=== PATIENT | male | born 1950 | race Caucasian/White ===

== ENCOUNTER 2018-02-12 07:21 | Outpatient (CLI) | payer MEDICARE, BC, SELFPAY ==
[2018-02-12 13:23] LABS: ALT 29 U/L (12-78); AST 20 U/L (15-37); Albumin 3.8 g/dL (3.4-5.0); Alkaline Phosphatase 61 U/L (46-116); BUN 15 mg/dL (7-18); Bilirubin, Total 0.4 mg/dL (0.2-1.0); CREATININE 1.12 mg/dL (0.70-1.30); Calcium 8.5 mg/dL (8.5-10.1); Chloride 103 mmol/L (98-107); Glucose 84 mg/dL (70-100); Potassium 4.6 mmol/L (3.5-5.1); Sodium 138 mmol/L (136-145); Total Protein 6.9 g/dL (6.4-8.2)
[2018-02-12 13:39] LABS: COMMENT (LAB VIEW ONLY) 148.26 mg/dL; Microalb ug/mg Crea 4.4 ug/mg Cr
[2018-02-12 13:44] LABS: Hemoglobin A1C 6.4 % (4.5-6.2)
== END 2018-02-12 07:41 ==
PROVIDERS: PCP Family Medicine; Visit Provider Family Medicine
DX: E11.9 Type 2 diabetes mellitus without complications (principal); I10 Essential (primary) hypertension
CPT/HCPCS: 36415; 80053; 82043; 82570; 83036

== ENCOUNTER 2018-05-21 19:52 | Emergency (ER) | payer MEDICARE, BC, SELFPAY ==
[2018-05-21 20:04] VITALS: BP 135/81; PULSE 70; RESP 16; TEMP 36.4; O2SAT 95
[2018-05-21 20:57] LABS: Bilirubin Negative (Negative); Blood Large (Negative); Clarity Sl Cloudy; Glucose Negative (Negative); Ketones Trace mg/dL (Negative); Leukocyte Esterase Negative (Negative); Nitrite Negative (Negative); Specific Gravity 1.025 (1.005-1.025); Urobilinogen 0.2 EU/dL (Up TO 0.2); pH 5.5 (5-8)
[2018-05-21 21:12] LABS: Bacteria Negative HPF (Negative); C & S Indicated? No; Casts Negative LPF (Negative); Crystals Negative HPF (Negative); Epithelial Cells Negative HPF (Negative); Mucus Negative (Negative); Other Cells Negative (Negative); RBC >50 (0-2); WBC Negative HPF (0-5)
[2018-05-21 21:14] LABS: Abs Immature Grans 0.03 k/cumm (0.0-0.09); Absolute Basophil Count 0.03 k/cumm (0.0-0.2); Absolute Eosinophil Count 0.12 k/cumm (0.0-0.7); Absolute Lymphocyte Count 1.26 k/cumm (1.2-3.4); Absolute Monocyte Count 0.57 k/cumm (0.11-0.7); Absolute Neutrophil Count 5.56 k/cumm (1.2-6.7); Basophils % 0.4; Eosinophils % 1.6; HCT 42.7 % (40.0-50.0); HGB 14.3 g/dL (13.5-17.5); Immature Grans % 0.4; Lymphocytes % 16.6; Mean Corp. HGB Concentration 33.5 g/dL (32.0-36.0); Mean Corpuscular Hemoglobin 32.4 pg (27.0-33.0); Mean Corpuscular Volume 96.8 fL (80-95); Mean Platelet Volume 9.5 fL (8.0-11.0); Monocytes % 7.5; Neutrophils % 73.5; Platelet Count 187 x1000/uL (130-400); RBC 4.41 m/cumm (4.50-6.00); RBC Distribution Width 15.3 % (11.8-14.1); White Blood Cell Count 7.57 k/cumm (4.4-10.8)
--- NOTE | 2018-05-21 21:20 | DI.CT_ITS ---
SYMPTOM/DIAGNOSIS: FLANK PAIN, LLQ PAIN NONCONTRAST CT ABDOMEN AND PELVIS: The lung bases are clear. Coronary artery calcifications and mild cardiomegaly is noted. There is mild bilateral gynecomastia. The liver, gallbladder, spleen, pancreas and adrenals appear normal. There is mild right hydronephrosis secondary to a 2 mm stone at the right ureterovesical junction. No left sided calculi are seen. There is a small left renal cyst. The appendix appears normal. There are a few scattered diverticula with no evidence of diverticulitis. The prostate contains a few calcifications. There is a saccular aneurysm of the mid abdominal aorta measuring 3.8 x 4.1 cm. Degenerative changes are seen in the spine. IMPRESSION: Mild right hydronephrosis secondary to 2 mm stone at the ureterovesical junction. 4.1 cm saccular abdominal aortic aneurysm.
[2018-05-21 21:24] LABS: ALT 33 U/L (12-78); AST 20 U/L (15-37); Alkaline Phosphatase 67 U/L (46-116); Anion Gap 10.5 mmol/L (3-11); BUN 16 mg/dL (7-18); Bilirubin, Total 0.5 mg/dL (0.2-1.0); CO2 26.5 mmol/L (21.0-32.0); CREATININE 1.12 mg/dL (0.70-1.30); Calcium 8.9 mg/dL (8.5-10.1); Chloride 100 mmol/L (98-107); Glucose 152 mg/dL (70-100); Potassium 4.5 mmol/L (3.5-5.1); Sodium 137 mmol/L (136-145)
--- NOTE | 2018-05-21 21:47 | DI.VRAD_ITS ---
EXAM: CT Abdomen and Pelvis Without Contrast EXAM DATE/TIME: 05/21/2018 8:48 PM CLINICAL HISTORY: 68 years old, male; Pain; Abdominal pain; Flank; Left; Patient HX: Patient states flank pain, llq pain. Dark urine since last night. No HX of kidney stones. TECHNIQUE: Axial computed tomography images of the abdomen and pelvis without contrast. All CT scans at this facility use at least one of these dose optimization techniques: automated exposure control; mA and/or kV adjustment per patient size (includes targeted exams where dose is matched to clinical indication); or iterative reconstruction. Coronal and sagittal reformatted images were created and reviewed. COMPARISON: No relevant prior studies available. FINDINGS: Lower thorax: Coronary arterial calcifications. ABDOMEN: Liver: No mass. Gallbladder and bile ducts: No calcified stones. No ductal dilation. Pancreas: No ductal dilation. Spleen: No splenomegaly. Adrenals: No mass. Kidneys and ureters: There is mild right-sided hydronephrosis. Exophytic left renal cyst measures 15 mm. No calculi elsewhere in the course of the urinary tract. Stomach and bowel: No obstruction. No mucosal thickening. Appendix: No evidence of appendicitis. PELVIS: Bladder: 2 mm calculus at the right ureterovesical junction projecting in the luminal aspect of the bladder. Reproductive: The prostate contains calcifications, mildly enlarged at 3.7 x 3.7 cm. Pelvic phleboliths bilaterally. ABDOMEN and PELVIS: Intraperitoneal space: No free air. No significant fluid collection. Bones/joints: Degenerative changes within thoracic and lumbar spine. Soft tissues: The abdomen is obese. Vasculature: Infrarenal abdominal aortic aneurysm, 3.8 x 4.1 cm. Atherosclerotic abdominal aorta and branches. Lymph nodes: No enlarged lymph nodes. IMPRESSION: 1. Mild right-sided hydroureteronephrosis, caused by 2 mm calculus at the right ureterovesical junction. No calculi elsewhere in the course of the urinary tract. No findings to account for the left flank pain. 2. Infrarenal abdominal aortic aneurysm, 3.8 x 4.1 cm. No rupture or leak. Dictated and Authenticated by: Elliott Harrington MD. Ordering:WILL Armenta MD
--- NOTE | 2018-05-21 22:39 | W.ED.GENAD ---
Discharge Plan Disposition Patient Disposition: HOME Condition: Stable Discharge Details Chief Complaint: Urinary Clinical Impression: Aneurysm of infrarenal abdominal aorta, Right ureteral stone Primary Care Provider: Viry Alex ED Provider: Geovany Price Home Meds and New Rx's Prescriptions: Continued amlodipine 5 mg tablet 5 mg PO DAILY RF: 0 glipizide 5 mg tablet 5 mg PO DAILY RF: 0 lisinopril-hydrochlorothiazide 10-12.5 mg tablet 1 tab PO DAILY RF: 0 lovastatin 40 mg tablet 40 mg PO DAILY RF: 0 metformin 1,000 mg tablet 1,000 - 1,500 mg PO BID RF: 0 sildenafil 50 mg tablet 25 - 100 mg PO DAILY PRN (Reason: sexual activity) RF: 0 fluticasone 50 mcg/actuation spray,suspension 1 spray JARAD DAILY Qty: 9.9 RF: 2 blood-glucose meter 1 EACH misc 1 ea Miscellaneous BID Qty: 1 RF: 0 LIFESCAN 1 EACH EACH 1 ea Miscellaneous BID Qty: 1 RF: 0 blood sugar diagnostic [Blood Glucose Test] 1 EACH strip 1 ea Miscellaneous QD to BID Qty: 200 RF: 4 atenolol 50 mg tablet 50 mg PO DAILY Qty: 90 RF: 4 Discharge Instructions Instructions: Kidney Stones (ED), Abdominal Aortic Aneurysm (GEN), How to Strain Your Urine (ED) Additional Instructions: He may continue to use [id number] acetaminophen as needed for pain control and return to the emergency department for any fever chills, significant worsening of your symptoms, or any further concerns that you have. Stay well-hydrated. As far as your abdominal aneurysm you should continue to take your blood pressure medication and immediately return to the emergency department for any severe abdominal pain Referrals: Viry Alex MD [Primary Care Provider] - 1 week (Please follow-up with your primary care provider in the next week for reassessment and assistance arranging vascular surgery follow-up for your abdominal aneurysm.) Patrick Wan MD [ [facility] STAFF PHYSICIAN] - (Please strain your urine and follow-up with urology in 1-2 weeks for reassessment.) Discharge Data Discharge Date/Time-TO BE ENTERED AT DEPARTURE: 05/21/18 23:38 Medical Decision Making Patient presenting to the emergency department for chief complaint of right flank pain. Patient states yesterday evening he started having some dark urine that persisted throughout today. Then a couple hours prior to arrival he started having some right lower abdominal pain and flank pain. Patient denies any nausea vomiting, fever chills, change in bowel function. Patient does state some mild urinary incontinence. Physical exam is positive for some mild right CVA tenderness otherwise unremarkable examination. Concern for renal calculi is high on differential list plan to perform radiological imaging and check labs. Patient states that pain is very comfortable after taking 1000 mg of acetaminophen approximately 2 hours prior to arrival. Review of labs shows nondiagnostic and CT shows a 2 mm stone in patient's right UVJ. Of notation is a 3.8 x 4.1 cm infrarenal abdominal aneurysm. Did discuss findings of aneurysm with patient and he states no previous knowledge or history of abdominal aneurysm. Patient is now pain-free with stable vital signs, non-tachycardic/hypertensive. Did speak with vascular surgeon Dr. [facility] at [facility] in regards to this secondary finding of abdominal aneurysm. He recommended patient follow-up with primary care for reassessment in the next week and assistance arranging outpatient follow-up with vascular surgery. Given 2 mm stone patient now states he is pain-free I feel that patient is safe to continue to use [id number] pain medication and to follow-up with Dr. Wan on outpatient basis. After discussion of diagnosis and plan of care patient has no further needs, questions, or concerns and states clear understanding to return to the emergency department for any worsening symptoms. HPI General Mode of arrival: ambulatory. Date/Time Provider Initiated Documentation: 05/21/18 20:06. Limitations to Documentation: no limitations. Information obtained by: patient and RN notes reviewed. History of Present Illness 68 year old M presents to the emergency department with the chief complaint of right flank pain, abd pain, described as mild, with intensity rated at 4. Quality is described as aching, and is localized to the right (flank). Patient abdomen. Patient started experiencing this hour(s) (24) and it has been constant. No relieving factors improve symptom(s), No exacerbating factors reported . Patient notes no other symptoms.. Patient did receive the following treatments prior to arrival, other (1000mg acetaminophen) Related Data Home Medications Medication Instructions Recorded Confirmed blood-glucose meter #1 ea 11/06/13 blood sugar diagnostic [Blood #200 strip 04/08/17 Glucose Test] amlodipine 5 mg tablet 5 mg PO DAILY 02/10/18 05/21/18 glipizide 5 mg tablet 5 mg PO DAILY 02/10/18 05/21/18 lisinopril 10 1 tab PO DAILY 02/10/18 05/21/18 mg-hydrochlorothiazide 12.5 mg tablet lovastatin 40 mg tablet 40 mg PO DAILY 02/10/18 05/21/18 metformin 1,000 mg tablet 1,000 - 1,500 mg PO BID tab 02/10/18 05/21/18 sildenafil 50 mg tablet 25 - 100 mg PO DAILY PRN tab 02/10/18 05/21/18 fluticasone 50 mcg/actuation nasal 1 spray JARAD DAILY #9.9 gm 02/11/18 05/21/18 spray,suspension atenolol 50 mg tablet 50 mg PO DAILY #90 tab 03/31/18 05/21/18 Previous Rx's Medication Instructions Recorded blood sugar diagnostic [Blood #200 strip 04/08/17 Glucose Test] fluticasone 50 mcg/actuation nasal 1 spray JARAD DAILY #9.9 gm 02/11/18 spray,suspension atenolol 50 mg tablet 50 mg PO DAILY #90 tab 03/31/18 Allergies Allergy/AdvReac Type Severity Reaction Status Date / Time shellfish derived Allergy Mild Unverified 05/21/18 20:11 General Stated Complaint: Urinary BRIGIDO: 4 Review of Systems Constitutional Denies chills and Denies fever(s) Cardiovascular Denies chest pain and Denies dyspnea Respiratory Denies dyspnea Gastrointestinal Reports as per HPI, Reports abdominal pain, Denies melena, Denies change in bowel habits, Denies constipation, Denies diarrhea, Denies nausea and Denies vomiting Genitourinary Reports as per HPI, Reports hematuria, Denies difficulty urinating, Reports flank pain, Denies penile discharge, Denies testicular pain, Denies urinary hesitancy, Reports urinary incontinence and Denies urinary urgency Integumentary/Breasts Denies rash PFSH Allergic rhinitis Diabetes Hyperlipidemia Hypertension Family History Mother Essential hypertension Heart disease Hyperlipidemia Father Diabetes Sister Diabetes Essential hypertension Brother Diabetes Essential hypertension Grandfather TB (tuberculosis) Grandfather Essential hypertension Stroke Grandmother Essential hypertension Seizures Grandmother Essential hypertension Son No problems noted. Son No problems noted. Daughter No problems noted. Social History household members: other details: 4 current occupational status: retired pets and animals: Yes pets and animals: dog(s) Smoking/Tobacco Use Status: Former Tobacco Use alcohol intake: current alcohol intake frequency: a few times a month substance use type: does not use special davis needs: No Exam Const General: cooperative Orientation: alert, awake and oriented x3 Resp Effort & Inspection: normal respiratory effort and able to speak in complete sentences Auscultation: clear to auscultation bilaterally Cardio Rate: regular rate Rhythm: regular rhythm Heart Sounds: S1 normal and S2 normal GI Palpation: soft, no hepatosplenomegaly, not firm, no guarding, no masses, no pulsatile masses, not rigid, no splenomegaly and nontender Auscultation: normal bowel sounds Back/Spine/Pelvis Back: CVA tenderness (right) Neuro General: alert, awake, oriented x3, gait normal and moves all extremities Course Vital Signs Temperature 36.4 C 05/21/18 20:04 Pulse 70 05/21/18 20:04 Respiratory Rate 16 05/21/18 20:04 Blood Pressure 135/81 05/21/18 20:04 Pulse Oximetry 95 05/21/18 20:04 Temperature 36.4 C 05/21/18 20:04 Temperature Source Temporal Artery Scan 05/21/18 20:04 Pulse 70 05/21/18 20:04 Respiratory Rate 16 05/21/18 20:04 Respiratory Effort 05/21/18 20:04 Blood Pressure 135/81 05/21/18 20:04 Pulse Oximetry 95 05/21/18 20:04 Oxygen Delivery Method Room Air 05/21/18 20:04 Oxygen Flow Rate 0 05/21/18 20:04 Pain Level 7 05/21/18 20:09 Lab/Test Results Lab/Test Results: Laboratory Tests Range/Units 05/21/18 05/21/18 05/21/18 20:00 20:55 20:55 WBC (4.4-10.8) k/cumm 7.57 RBC (4.50-6.00) m/cumm 4.41 L Hgb (13.5-17.5) g/dL 14.3 Hct (40.0-50.0) % 42.7 MCV (80-95) fL 96.8 H MCH (27.0-33.0) pg 32.4 MCHC (32.0-36.0) g/dL 33.5 RDW (11.8-14.1) % 15.3 H Plt Count (130-400) x1000/uL 187 MPV (8.0-11.0) fL 9.5 Immature Gran % 0.4 Neutrophils % 73.5 Lymphocytes % 16.6 Monocytes % 7.5 Eosinophils % 1.6 Basophils % 0.4 Absolute Neutrophils (1.2-6.7) k/cumm 5.56 Absolute Lymphocytes (1.2-3.4) k/cumm 1.26 Absolute Monocytes (0.11-0.7) k/cumm 0.57 Absolute Eosinophils (0.0-0.7) k/cumm 0.12 Absolute Basophils (0.0-0.2) k/cumm 0.03 Sodium (136-145) mmol/L 137 Potassium (3.5-5.1) mmol/L 4.5 Chloride (98-107) mmol/L 100 Carbon Dioxide (21.0-32.0) mmol/L 26.5 Anion Gap (3-11) mmol/L 10.5 BUN (7-18) mg/dL 16 Creatinine (0.70-1.30) mg/dL 1.12 Estimated GFR/1.73 m2 (mL/min/1.73m2) >= 60.00 Glucose (70-100) mg/dL 152 H Calcium (8.5-10.1) mg/dL 8.9 Total Bilirubin (0.2-1.0) mg/dL 0.5 AST (15-37) U/L 20 ALT (12-78) U/L 33 Alkaline Phosphatase (46-116) U/L 67 Total Protein (6.4-8.2) g/dL 8.0 Albumin (3.4-5.0) g/dL 4.0 Urine Color (Yellow) Brown Urine Clarity Sl cloudy Urine pH (5-8) 5.5 Ur Specific [place] (1.005-1.025) 1.025 Urine Protein (Negative) mg/dL 100 H Urine Ketones (Negative) mg/dL Trace H Urine Blood (Negative) Large H Urine Nitrite (Negative) Negative Urine Bilirubin (Negative) Negative Urine Urobilinogen (Up TO 0.2) EU/dL 0.2 Ur Leukocyte Esterase (Negative) Negative Urine RBC (0-2) >50 H Urine WBC (0-5) HPF Negative Ur Epithelial Cells (Negative) HPF Negative Urine Crystals (Negative) HPF Negative Urine Bacteria (Negative) HPF Negative Urine Casts (Negative) LPF Negative Urine Mucus (Negative) Negative Urine Other (Negative) Negative Ur Culture Indicated? No Urine Glucose (Negative) mg/dL Negative
--- NOTE | 2018-05-21 22:45 | ED.GENADUL_ITS ---
Discharge Plan Disposition Patient Disposition: HOME Condition: Stable Discharge Details Chief Complaint: Urinary Clinical Impression: Aneurysm of infrarenal abdominal aorta, Right ureteral stone Primary Care Provider: Viry Alex ED Provider: Geovany Price Home Meds and New Rx's Prescriptions: Continued amlodipine 5 mg tablet 5 mg PO DAILY RF: 0 glipizide 5 mg tablet 5 mg PO DAILY RF: 0 lisinopril-hydrochlorothiazide 10-12.5 mg tablet 1 tab PO DAILY RF: 0 lovastatin 40 mg tablet 40 mg PO DAILY RF: 0 metformin 1,000 mg tablet 1,000 - 1,500 mg PO BID RF: 0 sildenafil 50 mg tablet 25 - 100 mg PO DAILY PRN (Reason: sexual activity) RF: 0 fluticasone 50 mcg/actuation spray,suspension 1 spray JARAD DAILY Qty: 9.9 RF: 2 blood-glucose meter 1 EACH misc 1 ea Miscellaneous BID Qty: 1 RF: 0 LIFESCAN 1 EACH EACH 1 ea Miscellaneous BID Qty: 1 RF: 0 blood sugar diagnostic [Blood Glucose Test] 1 EACH strip 1 ea Miscellaneous QD to BID Qty: 200 RF: 4 atenolol 50 mg tablet 50 mg PO DAILY Qty: 90 RF: 4 Discharge Instructions Instructions: Kidney Stones (ED), Abdominal Aortic Aneurysm (GEN), How to Strain Your Urine (ED) Additional Instructions: He may continue to use [id number] acetaminophen as needed for pain control and return to the emergency department for any fever chills, significant worsening of your symptoms, or any further concerns that you have. Stay well- hydrated. As far as your abdominal aneurysm you should continue to take your blood pressure medication and immediately return to the emergency department for any severe abdominal pain Referrals: Viry Alex MD [Primary Care Provider] - 1 week (Please follow-up with your primary care provider in the next week for reassessment and assistance arranging vascular surgery follow-up for your abdominal aneurysm.) Patrick Wan MD [ [facility] STAFF PHYSICIAN] - (Please strain your urine and follow-up with urology in 1-2 weeks for reassessment.) Discharge Data Discharge Date/Time-TO BE ENTERED AT DEPARTURE: 05/21/18 23:38 Medical Decision Making Patient presenting to the emergency department for chief complaint of right flank pain. Patient states yesterday evening he started having some dark urine that persisted throughout today. Then a couple hours prior to arrival he started having some right lower abdominal pain and flank pain. Patient denies any nausea vomiting, fever chills, change in bowel function. Patient does state some mild urinary incontinence. Physical exam is positive for some mild right CVA tenderness otherwise unremarkable examination. Concern for renal calculi is high on differential list plan to perform radiological imaging and check labs. Patient states that pain is very comfortable after taking 1000 mg of acetaminophen approximately 2 hours prior to arrival. Review of labs shows nondiagnostic and CT shows a 2 mm stone in patient's right UVJ. Of notation is a 3.8 x 4.1 cm infrarenal abdominal aneurysm. Did discuss findings of aneurysm with patient and he states no previous knowledge or history of abdominal aneurysm. Patient is now pain-free with stable vital signs, non- tachycardic/hypertensive. Did speak with vascular surgeon Dr. Love at [facility] in regards to this secondary finding of abdominal aneurysm. He recommended patient follow-up with primary care for reassessment in the next week and assistance arranging outpatient follow-up with vascular surgery. Given 2 mm stone patient now states he is pain-free I feel that patient is safe to continue to use [id number] pain medication and to follow-up with Dr. Wan on outpatient basis. After discussion of diagnosis and plan of care patient has no further needs, questions, or concerns and states clear understanding to return to the emergency department for any worsening symptoms. HPI General Mode of arrival: ambulatory . Date/Time Provider Initiated Documentation: 05/21/18 20:06 . Limitations to Documentation: no limitations . Information obtained by: patient and RN notes reviewed . History of Present Illness 68 year old M presents to the emergency department with the chief complaint of right flank pain, abd pain, described as mild, with intensity rated at 4. Quality is described as aching, and is localized to the right (flank). Patient abdomen. Patient started experiencing this hour(s) (24) and it has been constant. No relieving factors improve symptom(s), No exacerbating factors reported . Patient notes no other symptoms.. Patient did receive the following treatments prior to arrival, other (1000mg acetaminophen) Related Data Home Medications Medication Instructions Recorded Confirmed blood-glucose meter #1 ea 11/06/13 blood sugar diagnostic [Blood #200 strip 04/08/17 Glucose Test] amlodipine 5 mg tablet 5 mg PO DAILY 02/10/18 05/21/18 glipizide 5 mg tablet 5 mg PO DAILY 02/10/18 05/21/18 lisinopril 10 1 tab PO DAILY 02/10/18 05/21/18 mg-hydrochlorothiazide 12.5 mg tablet lovastatin 40 mg tablet 40 mg PO DAILY 02/10/18 05/21/18 metformin 1,000 mg tablet 1,000 - 1,500 mg PO BID tab 02/10/18 05/21/18 sildenafil 50 mg tablet 25 - 100 mg PO DAILY PRN tab 02/10/18 05/21/18 fluticasone 50 mcg/actuation nasal 1 spray JARAD DAILY #9.9 gm 02/11/18 05/21/18 spray,suspension atenolol 50 mg tablet 50 mg PO DAILY #90 tab 03/31/18 05/21/18 Previous Rx's Medication Instructions Recorded blood sugar diagnostic [Blood #200 strip 04/08/17 Glucose Test] fluticasone 50 mcg/actuation nasal 1 spray JARAD DAILY #9.9 gm 02/11/18 spray,suspension atenolol 50 mg tablet 50 mg PO DAILY #90 tab 03/31/18 Allergies Allergy/AdvReac Type Severity Reaction Status Date / Time shellfish derived Allergy Mild Unverified 05/21/18 20:11 General Stated Complaint: Urinary BRIGIDO: 4 Review of Systems Constitutional Denies chills and Denies fever(s) Cardiovascular Denies chest pain and Denies dyspnea Respiratory Denies dyspnea Gastrointestinal Reports as per HPI, Reports abdominal pain, Denies melena, Denies change in bowel habits, Denies constipation, Denies diarrhea, Denies nausea and Denies vomiting Genitourinary Reports as per HPI, Reports hematuria, Denies difficulty urinating, Reports flank pain, Denies penile discharge, Denies testicular pain, Denies urinary hesitancy, Reports urinary incontinence and Denies urinary urgency Integumentary/Breasts Denies rash PFSH Allergic rhinitis Diabetes Hyperlipidemia Hypertension Family History Mother Essential hypertension Heart disease Hyperlipidemia Father Diabetes Sister Diabetes Essential hypertension Brother Diabetes Essential hypertension Grandfather TB (tuberculosis) Grandfather Essential hypertension Stroke Grandmother Essential hypertension Seizures Grandmother Essential hypertension Son No problems noted. Son No problems noted. Daughter No problems noted. Social History household members: other details: 4 current occupational status: retired pets and animals: Yes pets and animals: dog(s) Smoking/Tobacco Use Status: Former Tobacco Use alcohol intake: current alcohol intake frequency: a few times a month substance use type: does not use special davis needs: No Exam Const General: cooperative Orientation: alert, awake and oriented x3 Resp Effort & Inspection: normal respiratory effort and able to speak in complete sentences Auscultation: clear to auscultation bilaterally Cardio Rate: regular rate Rhythm: regular rhythm Heart Sounds: S1 normal and S2 normal GI Palpation: soft, no hepatosplenomegaly, not firm, no guarding, no masses, no pulsatile masses, not rigid, no splenomegaly and nontender Auscultation: normal bowel sounds Back/Spine/Pelvis Back: CVA tenderness (right) Neuro General: alert, awake, oriented x3, gait normal and moves all extremities Course Vital Signs Temperature 36.4 C 05/21/18 20:04 Pulse 70 05/21/18 20:04 Respiratory Rate 16 05/21/18 20:04 Blood Pressure 135/81 05/21/18 20:04 Pulse Oximetry 95 05/21/18 20:04 Temperature 36.4 C 05/21/18 20:04 Temperature Source Temporal Artery Scan 05/21/18 20:04 Pulse 70 05/21/18 20:04 Respiratory Rate 16 05/21/18 20:04 Respiratory Effort 05/21/18 20:04 Blood Pressure 135/81 05/21/18 20:04 Pulse Oximetry 95 05/21/18 20:04 Oxygen Delivery Method Room Air 05/21/18 20:04 Oxygen Flow Rate 0 05/21/18 20:04 Pain Level 7 05/21/18 20:09 Lab/Test Results Lab/Test Results: Laboratory Tests Range/Units 05/21/18 05/21/18 05/21/18 20:00 20:55 20:55 WBC (4.4-10.8) k/cumm 7.57 RBC (4.50-6.00) m/cumm 4.41 L Hgb (13.5-17.5) g/dL 14.3 Hct (40.0-50.0) % 42.7 MCV (80-95) fL 96.8 H MCH (27.0-33.0) pg 32.4 MCHC (32.0-36.0) g/dL 33.5 RDW (11.8-14.1) % 15.3 H Plt Count (130-400) x1000/uL 187 MPV (8.0-11.0) fL 9.5 Immature Gran % 0.4 Neutrophils % 73.5 Lymphocytes % 16.6 Monocytes % 7.5 Eosinophils % 1.6 Basophils % 0.4 Absolute Neutrophils (1.2-6.7) k/cumm 5.56 Absolute Lymphocytes (1.2-3.4) k/cumm 1.26 Absolute Monocytes (0.11-0.7) k/cumm 0.57 Absolute Eosinophils (0.0-0.7) k/cumm 0.12 Absolute Basophils (0.0-0.2) k/cumm 0.03 Sodium (136-145) mmol/L 137 Potassium (3.5-5.1) mmol/L 4.5 Chloride (98-107) mmol/L 100 Carbon Dioxide (21.0-32.0) mmol/L 26.5 Anion Gap (3-11) mmol/L 10.5 BUN (7-18) mg/dL 16 Creatinine (0.70-1.30) mg/dL 1.12 Estimated GFR/1.73 m2 (mL/min/1.73m2) >= 60.00 Glucose (70-100) mg/dL 152 H Calcium (8.5-10.1) mg/dL 8.9 Total Bilirubin (0.2-1.0) mg/dL 0.5 AST (15-37) U/L 20 ALT (12-78) U/L 33 Alkaline Phosphatase (46-116) U/L 67 Total Protein (6.4-8.2) g/dL 8.0 Albumin (3.4-5.0) g/dL 4.0 Urine Color (Yellow) Brown Urine Clarity Sl cloudy Urine pH (5-8) 5.5 Ur Specific [place] (1.005-1.025) 1.025 Urine Protein (Negative) mg/dL 100 H Urine Ketones (Negative) mg/dL Trace H Urine Blood (Negative) Large H Urine Nitrite (Negative) Negative Urine Bilirubin (Negative) Negative Urine Urobilinogen (Up TO 0.2) EU/dL 0.2 Ur Leukocyte Esterase (Negative) Negative Urine RBC (0-2) >50 H Urine WBC (0-5) HPF Negative Ur Epithelial Cells (Negative) HPF Negative Urine Crystals (Negative) HPF Negative Urine Bacteria (Negative) HPF Negative Urine Casts (Negative) LPF Negative Urine Mucus (Negative) Negative Urine Other (Negative) Negative Ur Culture Indicated? No Urine Glucose (Negative) mg/dL Negative
[2018-05-21 23:38] VITALS: BP 124/77; PULSE 63; RESP 16; O2SAT 97
== END 2018-05-21 23:38 | disposition home or self-care (01) ==
PROVIDERS: Emergency Provider Nurse Practitioner Family; PCP Family Medicine
DX: I71.4 Abdominal aortic aneurysm, without rupture (principal); N20.1 Calculus of ureter; I10 Essential (primary) hypertension
CPT/HCPCS: 36415; 80053; 96360; 99284; 74176; 81003; 81015; 85025

== ENCOUNTER 2018-08-26 02:38 | Outpatient (CLI) | payer MEDICARE, BC, SELFPAY ==
[2018-08-26 11:14] LABS: Anion Gap 9.5 mmol/L (3-11); BUN 22 mg/dL (7-18); CO2 28.5 mmol/L (21.0-32.0); CREATININE 1.09 mg/dL (0.70-1.30); Calcium 9.2 mg/dL (8.5-10.1); Chloride 101 mmol/L (98-107); Cholesterol 124 mg/dL (50-200); Glucose 80 mg/dL (70-100); HDL Cholesterol 30 mg/dL (40-60); LDL CHOLESTEROL 74 mg/dL (<100); Potassium 4.5 mmol/L (3.5-5.1); Sodium 139 mmol/L (136-145); Triglyceride 119 mg/dL (30-150)
[2018-08-26 11:31] LABS: Hemoglobin A1C 6.2 % (4.5-6.2)
== END 2018-08-26 02:58 ==
PROVIDERS: PCP Family Medicine; Visit Provider Family Medicine
DX: E78.5 Hyperlipidemia, unspecified (principal); E11.9 Type 2 diabetes mellitus without complications
CPT/HCPCS: 36415; 80048; 80061; 83721; 83036

== ENCOUNTER 2018-12-23 13:52 | Outpatient (CLI) | payer MEDICARE, BC, SELFPAY ==
--- NOTE | 2018-12-23 09:34 | DI.RAD_ITS ---
SYMPTOM/DIAGNOSIS: KNEE AND HIP PAIN RIGHT KNEE: Narrowing of the lateral tibiofemoral joint compartment is demonstrated. There is mild periarticular hypertrophic spurring. Note is made of narrowing of the lateral patellofemoral joint with mild lateral subluxation of the patella. 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 AP PELVIS: The bony structures are normally mineralized. There are minimal degenerative changes involving both hips as judged from this single frontal projection.
== END 2018-12-23 14:12 ==
PROVIDERS: PCP Family Medicine; Referring Provider Family Medicine; Visit Provider Orthopaedic Surgery
DX: M25.561 Pain in right knee (principal); M17.11 Unilateral primary osteoarthritis, right knee; M25.461 Effusion, right knee; M25.551 Pain in right hip; M17.12 Unilateral primary osteoarthritis, left knee; M25.562 Pain in left knee
CPT/HCPCS: 99201; 99213; 72170; 73560

== ENCOUNTER → 2019-01-20 09:01 | Outpatient (BNVA) | payer MEDICARE, BC, SELFPAY | PROVIDERS: PCP Family Medicine; Referring Provider Family Medicine; Visit Provider Orthopaedic Surgery | DX: M17.12 Unilateral primary osteoarthritis, left knee | CPT/HCPCS: 99213 ==

== ENCOUNTER 2019-03-09 01:41 | Outpatient (CLI) | payer MEDICARE, BC, SELFPAY ==
[2019-03-09 10:48] LABS: ALT 29 U/L (16-63); AST 17 U/L (15-37); Albumin 3.9 g/dL (3.4-5.0); Alkaline Phosphatase 51 U/L (46-116); Anion Gap 7.9 mmol/L (3-11); BUN 22 mg/dL (7-18); Bilirubin, Total 0.6 mg/dL (0.2-1.0); CO2 30.1 mmol/L (21.0-32.0); CREATININE 1.25 mg/dL (0.70-1.30); Calcium 8.9 mg/dL (8.5-10.1); Calculated LDL 66 mg/dL; Chloride 101 mmol/L (98-107); Cholesterol 121 mg/dL (50-200); Estimated GFR 57.61 (mL/min/1.73m2); Glucose 112 mg/dL (70-100); HDL Cholesterol 34 mg/dL (40-60); Potassium 4.8 mmol/L (3.5-5.1); Sodium 139 mmol/L (136-145); Total Protein 6.8 g/dL (6.4-8.2); Triglyceride 105 mg/dL (30-150)
[2019-03-09 10:51] LABS: Hemoglobin A1C 6.4 % (4.5-6.2)
[2019-03-09 11:10] LABS: COMMENT (LAB VIEW ONLY) 128.61 mg/dL; Microalb ug/mg Crea 7.7 ug/mg Cr
== END 2019-03-09 02:01 ==
PROVIDERS: PCP Family Medicine; Visit Provider Family Medicine
DX: E11.9 Type 2 diabetes mellitus without complications (principal)
CPT/HCPCS: 36415; 80053; 80061; 82043; 82570; 83036

== ENCOUNTER 2019-05-18 11:13 | Outpatient (CLI) | payer MEDICARE, BC, SELFPAY ==
--- NOTE | 2019-05-18 11:49 | DI.RAD_ITS ---
EXAM: XR SHOULDER LT COMPLETE 2+V INDICATION: pain. COMPARISON: No exams were available for comparison TECHNIQUE: 2D digital imaging was performed. FINDINGS: There is spurring at the undersurface of the acromion. There is mild spurring at the glenoid. The humeral head appears normally positioned. IMPRESSION: Mild degenerative changes.
== END 2019-05-18 11:33 ==
PROVIDERS: PCP Family Medicine; Referring Provider Family Medicine; Visit Provider Orthopaedic Surgery
DX: M25.512 Pain in left shoulder (principal); M19.012 Primary osteoarthritis, left shoulder; W19.XXXA Unspecified fall, initial encounter
CPT/HCPCS: 99201; 99213; 73030

== ENCOUNTER → 2019-07-21 09:05 | Outpatient (BNVA) | payer MEDICARE, BC, SELFPAY | PROVIDERS: PCP Family Medicine; Referring Provider Family Medicine; Visit Provider Orthopaedic Surgery | DX: M25.512 Pain in left shoulder (principal); S46.012D Strain of muscle(s) and tendon(s) of the rotator cuff of left shoulder, subsequent encounter; X58.XXXD Exposure to other specified factors, subsequent encounter | CPT/HCPCS: 99213 ==

== ENCOUNTER 2019-12-16 01:44 | Outpatient (CLI) | payer MEDICARE, BC, SELFPAY ==
[2019-12-16 12:32] LABS: ALT 23 U/L (16-63); AST 14 U/L (15-37); Alkaline Phosphatase 59 U/L (46-116); Anion Gap 10.4 mmol/L (3-11); BUN 27 mg/dL (7-18); Bilirubin, Total 0.4 mg/dL (0.2-1.0); CO2 25.6 mmol/L (21.0-32.0); CREATININE 1.32 mg/dL (0.70-1.30); Calcium 8.7 mg/dL (8.5-10.1); Chloride 104 mmol/L (98-107); Estimated GFR 53.94 (mL/min/1.73m2); Glucose 109 mg/dL (74-106); Potassium 4.5 mmol/L (3.5-5.1); Sodium 140 mmol/L (136-145)
[2019-12-16 12:39] LABS: Hemoglobin A1C 6.3 % (3.8-5.6)
== END 2019-12-16 02:04 ==
PROVIDERS: PCP Family Medicine; Visit Provider Family Medicine
DX: E11.9 Type 2 diabetes mellitus without complications (principal)
CPT/HCPCS: 36415; 80053; 83036

== ENCOUNTER 2020-03-22 02:29 | Outpatient (CLI) | payer MEDICARE, BC, SELFPAY ==
[2020-03-22 12:42] LABS: CREATININE 1.32 mg/dL (0.70-1.30); Estimated GFR 53.94 (mL/min/1.73m2)
== END 2020-03-22 02:49 ==
PROVIDERS: PCP Family Medicine; Visit Provider Surgery
DX: I71.4 Abdominal aortic aneurysm, without rupture (principal)
CPT/HCPCS: 36415; 82565

== ENCOUNTER 2020-04-07 03:28 | Outpatient (CLI) | payer MEDICARE, BC, SELFPAY ==
[2020-04-07] MEDS: Omnipaque 350 MG/ML 100 ML BTL IJ (15:21)
[2020-04-07] MEDS: Normal Saline - Diluent 50 ML VIAL IV (15:21)
[2020-04-07] MEDS: Normal Saline Flush 10 ML SYR IVP (15:21)
--- NOTE | 2020-04-07 15:30 | DI.CT_ITS ---
EXAM: CT ABDOMEN PELVIS CTA CLINICAL HISTORY: F/U AAA, I71.4 TECHNIQUE: CT angiography of the abdomen and pelvis was performed with bolus infusion of 100 cc of O mnipaque 350. COMPARISON: CT CT ANGIOGRAM ABDOMEN AND PELVIS W CONTRAST (GENERIC) from 08/23/2019 FINDINGS: Images obtained through the lung bases are unremarkable. The liver appears normal with no evidence of a focal mass. Spleen is unremarkable in appearance.. Gallbladder and bile ducts are unremarkable. Pancreas is unremarkable in appearance. Adrenals appear normal bilaterally. Kidneys appear normal with no evidence of renal mass, hydronephro sis, or nephrolithiasis There is no evidence of abdominal or pelvic adenopathy. There is a saccular infrarenal abdominal aortic aneurysm measuring 42 x 38 millimeters in cross-secti onal diameter, unchanged from prior scan at [facility] August 22. No evidence of aneurysm leakage. No other significant vascular lesion identified. Appendix is normal. No evidence diverticulitis or bowel obstruction. No significant abdominal wall hernia seen. Impression: Stable saccular infrarenal 42 millimeter in diameter abdominal aortic aneurysm. RADIATION DOSE DELIVERED: 1,610.8mGy.cm Total DLP 1,610.8mGy.cm Total DLP DATA REPOSITORY: All CT scans at this facility are submitted to the National Radiology Data Registry (NRDR) Dose Index Registry (DIR) with the [employer] ([employer]). RADIATION OPTIMIZATION: All CT scans at this facility use at least one of these dose optimization te chniques: automated exposure control; mA and/or kV adjustment per patient size (includes targeted exa ms where dose is matched to clinical indication); or iterative reconstruction.
== END 2020-04-07 03:48 ==
PROVIDERS: PCP Family Medicine; Visit Provider Surgery
DX: I71.4 Abdominal aortic aneurysm, without rupture (principal)
CPT/HCPCS: 74174; J3490

== ENCOUNTER 2020-06-13 01:03 | Outpatient (CLI) | payer MEDICARE, BC, SELFPAY ==
--- NOTE | 2020-06-13 | DI.RAD_ITS ---
EXAM: XR CHEST 2V PA LATERAL CLINICAL HISTORY: PREOP FOR AAA REPAIR, AAA WITHOUT RUPTURE,I71.4 TECHNIQUE: 2D digital imaging was performed. COMPARISON: No exams were available for comparison FINDINGS: MEDIASTINUM: Normal. HEART: Normal. PULMONARY VASCULATURE: Normal. LUNGS: Clear. PLEURAL SPACE: No pleural effusion or pneumothorax. BONE:Within normal limits for the patient's age. OTHER FINDINGS:Normal. IMPRESSION: No acute pulmonary findings. DATA REPOSITORY: RADIATION DOSE DELIVERED:
--- NOTE | 2020-06-13 | DI.US_ITS ---
APPROVED REPORT EXAM: Comprehensive 2D, Doppler, and color-flow Echocardiogram Patient Location: Out-Patient Motion Picture Camera Lens Technician: Ling Connors RDCS (AE) Indications: AAA without rupture, pre op Other Information Study Quality: Adequate Conclusion Left Ventricle : The left ventricle is normal size. The left ventricular systolic function is low nor mal. The left ventricular ejection fraction is within the normal range. There is normal left ventricu lar wall thickness. There is normal LV segmental wall motion. The left ventricular diastolic function is normal. LVEF is 50%. Right Ventricle : The right ventricle is normal size. The right ventricular systolic function is norm al. The RVSP is 32.6mmHg. Atria : The left atrium size is normal. The right atrium size is normal. Mitral Valve : Mild mitral annular calcification. Mild mitral regurgitation. No evidence of mitral va lve stenosis. Great Vessels : The aortic root is normal in size. The ascending aorta is normal in size. Aortic arch is normal in caliber. IVC is normal in size and collapses >50% with inspiration. Please see remainder of study for further details. Wall motion Left Ventricle The left ventricle is normal size. The left ventricular systolic function is low normal. The left paola tricular ejection fraction is within the normal range. There is normal left ventricular wall thicknes s. There is normal LV segmental wall motion. The left ventricular diastolic function is normal. There is no ventricular septal defect visualized. LVEF is 50%. Right Ventricle The right ventricle is normal size. The right ventricular systolic function is normal. The RVSP is 32 .6mmHg. Atria The left atrium size is normal. The right atrium size is normal. The interatrial septum is intact wit h no evidence for an atrial septal defect. Aortic Valve The aortic valve is normal in structure. Aortic valve is trileaflet. There is no aortic valvular sten osis. No aortic regurgitation is present. Mitral Valve Mild mitral annular calcification. No evidence of mitral valve stenosis. Mild mitral regurgitation. Tricuspid Valve The tricuspid valve is normal in structure. There is no tricuspid valve stenosis. Mild tricuspid regu rgitation. Pulmonic Valve The pulmonary valve is normal in structure. There is no pulmonic valvular stenosis. Trace pulmonic re gurgitation. Great Vessels The aortic root is normal in size. The ascending aorta is normal in size. Aortic arch is normal in ca liber. IVC is normal in size and collapses >50% with inspiration. Pericardium There is no pericardial effusion. 2D Dimensions IVSD d PLAX 0.92 cm M: 0.6-1.2 LV Vol A2C d MOD 114.3 mL LVPW d PLAX 0.93 cm M: 0.6 - 1.2 LV Vol A4C d MOD 133.7 mL LVID d PLAX 5.28 cm M: 4.2 - 5.8 LA vol/ BSA A2C s A-L 35.0 mL/m2 LVDs 3.60 cm M: 2.5 - 4.0 LA vol/ BSA A4C s A-L 41.8 mL/m2 Ao Root d 3.04 cm M: 3.1 - 3.7 LA Vol/ BSA Biplane s A-L 40.5 mL/m2 RA Area A4C 16.85 cm2 LA Area A4C s MOD 26.21 cm2 RA Vol/ BSA A4C s A-L 23.0 mL/m2 LA Area A2C s MOD 22.66 cm2 Ao Asc Diam d 3.47 cm M: 2.6 - 3.4 LV EF A4C MOD 50.5 % LV EF Teichholz 59.3 % LV EF A2C MOD 50.9 % LVEF (Salas's) 48.66 % M: 52 - 72 LV EF Biplane MOD 48.7 % LV Volume 91.94 mL M: 62 - 150 SV 60.99 mL LV Volume Index 42.96 mL/m2 M: 34 - 74 SV Index 28.47 mL/m2 LV Vol Biplane MOD 125.4 mL FS 31.70 % M-Mode TAPSE 2.52 cm (M/F) >1.7 LV Diastology MV E' medial 0.076 (>0.07 m/s) E/A Ratio 1.1 LV E/e MED 10.95 (<14) MV E Vmax 0.83 (0.4-1.3 m/s) MV E' lateral 0.097 (>0.1 m/s) MV A Vmax 0.75 (0.4-1.3 m/s) LV E/e LAT 8.60 (<14) MV E/A Ratio 1.04 MV E/E' medial 10.97 MV E/E' lateral 8.61 Aortic Valve LVOT Area 3.42 cm2 AoV Area Vmax 2.59 cm2 LVOT Vmax 1.16 m/s AoV Area/ BSA (Vmax) 1.21 cm2/m2 LVOT Mean Magdaleno. 0.78 m/s CHAU Mean Magdaleno. 2.46 cm2 LVOT Peak Grad 5.3 mmHg CHAU Mean Magdaleno. Index 1.15 cm2/m2 LVOT Mean Grad 2.8 mmHg LVOT VTI 0.266 m LVOT Diam s 2.05 cm AoV Vmax 1.53 m/s Velocity Ratio 0.75 AoV Mean Magdaleno. 1.09 m/s AoV Peak Grad 9.3 mmHg LVOT SV 91.03 mL AoV Mean Grad 5.2 mmHg AoV VTI 0.337 m AoV Area VTI 2.70 cm2 AoV Area/ BSA (VTI) 1.26 cm/m2 Mitral Valve MV DT 166 (160-240 msec) MR PISA Radius 0.40 cm MV PHT 48 msec MR Aliasing Velocity 0.35 m/s MV Area PHT 4.58 cm2 MR PISA 1.01 cm2 MV VTI 0.389 m MV VTI Annulus 0.376 m MV Area VTI 2.26 (4.0-6.0 cm2) Pulmonary Valve PV Vmax 0.91 (0.5-1.5 m/s) RVOT Peak Gr. 1.47 mmHg PV Peak Grad 3.3 mmHg RVOT Mean Gr. 0.80 mmHg PV Mean Grad 1.9 mmHg RVOT VTI 0.159 m PV VTI 0.214 m RVOT Vmax 0.61 m/s Tricuspid Valve TR Peak Grad 29.6 mmHg TR Vmax 2.72 m/s RA Pressure 3.00 mmHg RVSP (TR) 32.6 mmHg
[2020-06-13 11:48] LABS: HCT 36.9 % (40.0-50.0); HGB 11.9 g/dL (13.5-17.5); MCH 30.4 pg (27.0-33.0); MCHC 32.2 % (32.0-36.0); MCV 94.4 fL (80-95); MPV 9.6 fL (8.0-11.0); Platelet Count 194 10^3/uL (130-400); RBC 3.91 10^6/uL (4.36-5.78); RDW 12.9 % (11.8-14.1); RDW-SD 44.7 fL; WBC 4.71 10^3/uL (4.4-10.8)
[2020-06-13 12:07] LABS: Hemoglobin A1C 6.8 % (<5.7)
[2020-06-13 12:13] LABS: Anion Gap 6.7 mmol/L (3-11); BUN 31 mg/dL (7-18); CO2 27.3 mmol/L (21.0-32.0); CREATININE 1.45 mg/dL (0.70-1.30); Calcium 8.5 mg/dL (8.5-10.1); Chloride 104 mmol/L (98-107); Estimated GFR 48.25 (mL/min/1.73m2); Glucose 122 mg/dL (74-106); Potassium 4.7 mmol/L (3.5-5.1); Sodium 138 mmol/L (136-145)
[2020-06-13 17:52] LABS: PSA, Diagnostic 0.2 ng/mL (0.0-4.5)
[2020-06-14 11:05] LABS: Prealbumin 24 mg/dL (20-40)
== END 2020-06-13 01:23 ==
PROVIDERS: PCP Family Medicine; Visit Provider Surgery
DX: I71.4 Abdominal aortic aneurysm, without rupture (principal); E11.9 Type 2 diabetes mellitus without complications; N40.0 Benign prostatic hyperplasia without lower urinary tract symptoms
CPT/HCPCS: 36415; 80048; 85027; 93306; 71046; 83036; 84134; 84153

== ENCOUNTER 2020-06-13 04:08 | Outpatient (CLI) | payer MEDICARE, BC, SELFPAY ==
--- NOTE | 2020-06-13 09:00 | RT.EKG_ITS ---
APPROVED REPORT Exam: Resting ECG Patient Location: O HR:64 bpm ECG Measurements Heart Rate 64 AXIS LA 196 P 16 QRSd 99 QRS -18 QT 406 T 9 QTc 421 Conclusion Sinus rhythm...normal P axis, V-rate 60- 99
== END 2020-06-13 04:28 ==
PROVIDERS: PCP Family Medicine; Visit Provider Surgery
DX: I71.4 Abdominal aortic aneurysm, without rupture (principal); Z01.810 Encounter for preprocedural cardiovascular examination; Z01.818 Encounter for other preprocedural examination; E11.9 Type 2 diabetes mellitus without complications; N40.0 Benign prostatic hyperplasia without lower urinary tract symptoms
CPT/HCPCS: 36415; 80048; 85027; 93306; 71046; 83036; 84134; 84153; 93005; 93010

== ENCOUNTER 2021-02-02 08:34 | Outpatient (CLI) | payer MEDICARE, BC, SELFPAY ==
--- NOTE | 2021-02-02 09:00 | RT.EKG_ITS ---
APPROVED REPORT Exam: Resting ECG Reason for Exam: AAA Patient Location: O HR:63 bpm ECG Measurements Heart Rate [address] 184 P 24 QRSd 101 QRS -20 QT 408 T 9 QTc 418 Conclusion Sinus rhythm...normal P axis, V-rate 60- 99 Normal Electrocardiogram
== END 2021-02-02 08:35 | disposition home or self-care (01) ==
LOC: RT 08:38
PROVIDERS: PCP Family Medicine; Visit Provider Surgery
DX: I71.4 Abdominal aortic aneurysm, without rupture (principal); Z01.818 Encounter for other preprocedural examination
CPT/HCPCS: 93005; 93010

== ENCOUNTER 2021-03-15 02:57 | Outpatient (CLI) | payer MEDICARE, BC, SELFPAY ==
[2021-03-15 12:58] LABS: ALT 25 U/L (16-63); AST 14 U/L (15-37); Albumin 3.8 g/dL (3.4-5.0); Alkaline Phosphatase 57 U/L (46-116); Anion Gap 9.4 mmol/L (3-11); BUN 26 mg/dL (7-18); Bilirubin, Total 0.3 mg/dL (0.2-1.0); CO2 24.6 mmol/L (21.0-32.0); CREATININE 1.4 mg/dL (0.70-1.30); Calcium 8.5 mg/dL (8.5-10.1); Calculated LDL 50 mg/dL (<100); Chloride 105 mmol/L (98-107); Cholesterol 103 mg/dL (<200); Estimated GFR 50.25 (mL/min/1.73m2); Glucose 134 mg/dL (74-106); HDL Cholesterol 30 mg/dL (40-60); Potassium 4.5 mmol/L (3.5-5.1); Sodium 139 mmol/L (136-145); Total Protein 6.5 g/dL (6.4-8.2); Triglyceride 119 mg/dL (<150)
[2021-03-15 13:48] LABS: COMMENT (LAB VIEW ONLY) 132.19 mg/dL
[2021-03-15 13:56] LABS: Hemoglobin A1C 7.2 % (<5.7)
== END 2021-03-15 02:58 | disposition home or self-care (01) ==
LOC: LOS 02:57
PROVIDERS: PCP Family Medicine; Visit Provider Family Medicine
DX: E11.9 Type 2 diabetes mellitus without complications (principal)
CPT/HCPCS: 36415; 80053; 80061; 82043; 82570; 83036

== ENCOUNTER 2021-06-15 03:57 | Outpatient (CLI) | payer MEDICARE, BC, SELFPAY ==
[2021-06-15 10:22] LABS: Anion Gap 8.8 mmol/L (3-11); BUN 23 mg/dL (7-18); CO2 28.2 mmol/L (21.0-32.0); CREATININE 1.3 mg/dL (0.70-1.30); Calcium 8.4 mg/dL (8.5-10.1); Chloride 105 mmol/L (98-107); Estimated GFR 54.57 (mL/min/1.73m2); Glucose 156 mg/dL (74-106); Potassium 4.2 mmol/L (3.5-5.1); Sodium 142 mmol/L (136-145)
== END 2021-06-15 03:58 | disposition home or self-care (01) ==
LOC: LBO 03:57
PROVIDERS: PCP Family Medicine; Visit Provider Family Medicine
DX: E11.9 Type 2 diabetes mellitus without complications (principal)
CPT/HCPCS: 36415; 80048; 83036

== ENCOUNTER 2021-11-01 03:17 | Outpatient (CLI) | payer MEDICARE, BC, SELFPAY ==
[2021-11-01 13:44] LABS: CREATININE 1.2 mg/dL (0.70-1.30); Estimated GFR 59.86 (mL/min/1.73m2)
== END 2021-11-01 03:18 | disposition home or self-care (01) ==
LOC: LOS 03:17
PROVIDERS: PCP Nurse Practitioner Family; Visit Provider Surgery
DX: I71.4 Abdominal aortic aneurysm, without rupture (principal)
CPT/HCPCS: 36415; 82565

== ENCOUNTER 2021-12-07 02:32 | Outpatient (CLI) | payer MEDICARE, BC, SELFPAY ==
[2021-12-07 12:48] LABS: COMMENT (LAB VIEW ONLY) 147.06 mg/dL; Microalb ug/mg Crea 5.1 ug/mg Cr
[2021-12-07 13:05] LABS: ALT 27 U/L (16-63); AST 20 U/L (15-37); Alkaline Phosphatase 55 U/L (46-116); Anion Gap 8.1 mmol/L (3-11); BUN 26 mg/dL (7-18); Bilirubin, Total 0.5 mg/dL (0.2-1.0); CO2 26.9 mmol/L (21.0-32.0); CREATININE 1.4 mg/dL (0.70-1.30); Calcium 9.1 mg/dL (8.5-10.1); Calculated LDL 69 mg/dL (<100); Chloride 101 mmol/L (98-107); Cholesterol 129 mg/dL (<200); Glucose 131 mg/dL (74-106); HDL Cholesterol 39 mg/dL (40-60); Potassium 4.3 mmol/L (3.5-5.1); Sodium 136 mmol/L (136-145); Total Protein 7.4 g/dL (6.4-8.2); Triglyceride 109 mg/dL (<150)
[2021-12-07 13:31] LABS: Hemoglobin A1C 7.2 % (<5.7)
== END 2021-12-07 02:33 | disposition home or self-care (01) ==
PROVIDERS: PCP Nurse Practitioner Family; Visit Provider Family Medicine
DX: E11.9 Type 2 diabetes mellitus without complications (principal); I10 Essential (primary) hypertension; E78.5 Hyperlipidemia, unspecified
CPT/HCPCS: 36415; 80053; 80061; 82043; 82570; 83036

== ENCOUNTER 2022-09-23 02:29 | Outpatient (CLI) | payer MEDICARE, BC, SELFPAY ==
[2022-09-23 12:28] LABS: CREATININE 2.1 mg/dL (0.70-1.30); Estimated GFR 33.03 (mL/min/1.73m2); Potassium 4.9 mmol/L (3.5-5.1)
[2022-09-23 12:58] LABS: Hemoglobin A1C 6.5 % (<5.7)
== END 2022-09-23 02:30 | disposition home or self-care (01) ==
LOC: LOS 02:29
PROVIDERS: PCP Nurse Practitioner Family; Visit Provider Nurse Practitioner Family
DX: I10 Essential (primary) hypertension (principal); E11.9 Type 2 diabetes mellitus without complications
CPT/HCPCS: 36415; 82565; 83036; 84132

== ENCOUNTER 2022-10-04 01:03 | Outpatient (CLI) | payer MEDICARE, BC, SELFPAY ==
[2022-10-04 12:56] LABS: Anion Gap 10.3 mmol/L (3-11); BUN 34 mg/dL (7-18); CO2 21.7 mmol/L (21.0-32.0); Calcium 8.4 mg/dL (8.5-10.1); Chloride 104 mmol/L (98-107); Estimated GFR 35.02 (mL/min/1.73m2); Glucose 123 mg/dL (74-106); Potassium 4.7 mmol/L (3.5-5.1); Sodium 136 mmol/L (136-145)
== END 2022-10-04 01:04 | disposition home or self-care (01) ==
LOC: LOS 01:04
PROVIDERS: PCP Nurse Practitioner Family; Visit Provider Nurse Practitioner Family
DX: N18.30 Chronic kidney disease, stage 3 unspecified (principal)
CPT/HCPCS: 36415; 80048

== ENCOUNTER 2023-07-07 03:52 | Outpatient (CLI) | payer MEDICARE, BC, SELFPAY ==
[2023-07-07 12:32] LABS: Anion Gap 10.5 mmol/L (3-11); BUN 29 mg/dL (7-18); CO2 24.5 mmol/L (21.0-32.0); CREATININE 1.9 mg/dL (0.70-1.30); Calcium 8.5 mg/dL (8.5-10.1); Calculated LDL 66 mg/dL (<100); Chloride 107 mmol/L (98-107); Cholesterol 122 mg/dL (<200); Estimated GFR 37.02 (mL/min/1.73m2); Glucose 72 mg/dL (74-106); HDL Cholesterol 40 mg/dL (40-60); Potassium 4.3 mmol/L (3.5-5.1); Sodium 142 mmol/L (136-145); Triglyceride 81 mg/dL (<150)
== END 2023-07-07 03:53 | disposition home or self-care (01) ==
LOC: LOS 03:53
PROVIDERS: PCP Nurse Practitioner Family; Visit Provider Nurse Practitioner Family
DX: E78.5 Hyperlipidemia, unspecified (principal); N18.30 Chronic kidney disease, stage 3 unspecified
CPT/HCPCS: 36415; 80048; 80061

== ENCOUNTER 2023-10-16 00:54 | Outpatient (CLI) | payer MEDICARE, BC, SELFPAY ==
[2023-10-16 12:38] LABS: CREATININE 1.9 mg/dL (0.70-1.30); Estimated GFR 37.02 (mL/min/1.73m2)
[2023-10-16 12:57] LABS: Hemoglobin A1C 7.1 % (<5.7)
== END 2023-10-16 00:55 | disposition home or self-care (01) ==
LOC: LOS 00:54
PROVIDERS: PCP Nurse Practitioner Family; Visit Provider Nurse Practitioner Family
DX: E11.9 Type 2 diabetes mellitus without complications (principal); N18.30 Chronic kidney disease, stage 3 unspecified
CPT/HCPCS: 36415; 82565; 83036

== ENCOUNTER 2024-03-12 11:17 | Outpatient (CLI) | payer MEDICARE, BC, SELFPAY ==
--- NOTE | 2024-03-12 13:09 | DI.RAD_ITS ---
Exam(s) XR KNEE RT 3V AP,LAT,FABRICE XR ANKLE RT COMPLETE XR TIB/FIB RT EXAM: XR TIB/FIB RT CLINICAL HISTORY: fall, injury,rt leg pain,m79.604. TECHNIQUE: 2D digital imaging was performed. Two views. COMPARISON: CR XR ANKLE RT COMPLETE from 03/12/2024 CR XR KNEE RT 3V AP,LAT,FABRICE from 03/12/2024 FINDINGS: BONES: Mildly displaced oblique fracture extending through the lateral malleolus to the level of the ankle mortise. Widening at the lateral tibiotalar joint. No significant degenerative changes at the ankle. No bony destructive lesion is seen. Joints: Severe narrowing of the lateral femoral tibial joint and periarticular spurring. Spurring at the tibial spines. Mild narrowing of the lateral femoral tibial joint space. A knee joint effusion is present. SOFT TISSUE: Diffuse soft tissue swelling for from the through ankle. IMPRESSION: Lateral malleolar fracture. No additional fractures identified. Severe degenerative changes are not ed at the knee. DATA REPOSITORY: RADIATION DOSE DELIVERED:
--- NOTE | 2024-03-12 13:09 | DI.RAD_ITS ---
Exam(s) XR FOOT RT COMPLETE EXAM: XR FOOT RT COMPLETE CLINICAL HISTORY: fall, injury. TECHNIQUE: 2D digital imaging was performed. Three views. COMPARISON: No exams were available for comparison FINDINGS: BONES: Mildly displaced lateral malleolar fracture seen on the lateral view. An nondisplaced fractur e at the base of the 5th proximal phalanx. No visible separation at the articular surface. No bony destructive lesion is seen. Small heel spurs. JOINTS: No dislocation present. SOFT TISSUE: Normal. IMPRESSION: Nondisplaced fracture 5th proximal phalanx. DATA REPOSITORY: RADIATION DOSE DELIVERED:
== END 2024-03-12 11:37 ==
PROVIDERS: PCP Nurse Practitioner Family; Visit Provider Physician Assistant
DX: S82.431A Displaced oblique fracture of shaft of right fibula, initial encounter for closed fracture (principal); S92.515A Nondisplaced fracture of proximal phalanx of left lesser toe(s), initial encounter for closed fracture; X58.XXXA Exposure to other specified factors, initial encounter; M17.11 Unilateral primary osteoarthritis, right knee
CPT/HCPCS: 73562; 73590; 73610; 73630

== ENCOUNTER 2024-03-18 13:14 | Outpatient (CLI) | payer MEDICARE, BC, SELFPAY ==
--- NOTE | 2024-03-18 13:34 | DI.RAD_ITS ---
Exam(s) XR ANKLE RT COMPLETE EXAM: XR ANKLE RT COMPLETE CLINICAL HISTORY: right ankle injury. TECHNIQUE: 2D digital imaging was performed. Five views. Additional gravity stress views performed . COMPARISON: No exams were available for comparison FINDINGS: BONES: No change in alignment of lateral malleolar fracture. Additional fracture at the tip of the m edial malleolus is now visible. No bony destructive lesion is seen. Small heel spurs. JOINTS: The ankle mortise is normally aligned. No widening of the ankle mortise on the stress views . SOFT TISSUE: Diffuse soft tissue swelling. Vascular calcifications. IMPRESSION: No change in alignment lateral malleolar fracture and. small fracture fragment also noted at the ti p of the medial malleolus. DATA REPOSITORY: RADIATION DOSE DELIVERED:
== END 2024-03-18 13:15 | disposition home or self-care (01) ==
LOC: DIORS 13:15
PROVIDERS: PCP Nurse Practitioner Family; Referring Provider Nurse Practitioner Family; Visit Provider Physician Assistant
DX: S82.831A Other fracture of upper and lower end of right fibula, initial encounter for closed fracture; W10.8XXA Fall (on) (from) other stairs and steps, initial encounter
CPT/HCPCS: 99203; 73610

== ENCOUNTER 2024-04-15 15:14 | Outpatient (CLI) | payer MEDICARE, BC, SELFPAY ==
--- NOTE | 2024-04-15 08:45 | DI.RAD_ITS ---
Exam(s) XR ANKLE RT COMPLETE EXAM: XR ANKLE RT COMPLETE CLINICAL HISTORY: F/U R DISTAL FIB. TECHNIQUE: 2D digital imaging was performed of the right ankle. Three images were obtained. AP, la teral and oblique views were obtained. COMPARISON: CR XR ANKLE RT COMPLETE from 03/18/2024 FINDINGS: BONES: There has been no change in alignment of the distal right fibular fracture. There is evidence of healing. No new fractures present. No bony destructive lesion is seen. JOINTS: The ankle mortise is normally aligned. SOFT TISSUE: There is soft tissue swelling of the ankle. IMPRESSION: Stable alignment of the distal right fibular fracture with evidence of some healing. DATA REPOSITORY: RADIATION DOSE DELIVERED:
== END 2024-04-15 15:15 | disposition home or self-care (01) ==
LOC: DIORS 15:14
PROVIDERS: PCP Nurse Practitioner Family; Referring Provider Nurse Practitioner Family; Visit Provider Student in an Organized Health Care Education/Training Program
DX: S82.831D Other fracture of upper and lower end of right fibula, subsequent encounter for closed fracture with routine healing; X58.XXXD Exposure to other specified factors, subsequent encounter
CPT/HCPCS: 99213; 73610

== ENCOUNTER 2024-05-27 15:25 | Outpatient (CLI) | payer MEDICARE, BC, SELFPAY ==
--- NOTE | 2024-05-27 10:00 | DI.RAD_ITS ---
Exam(s) XR ANKLE RT COMPLETE EXAM: XR ANKLE RT COMPLETE CLINICAL HISTORY: fracture follow up. TECHNIQUE: 2D digital imaging was performed of the right ankle. Three images were obtained. AP, la teral and oblique views were obtained. COMPARISON: CR XR ANKLE RT COMPLETE from 03/12/2024 CR XR ANKLE RT COMPLETE from 04/15/2024 FINDINGS: BONES: There has been no change in alignment of the distal fibular fracture. There has been slight i ncrease in the callus formation best appreciated on the lateral view. No new fracture is seen. Ther e is an osseous density again seen at the tip of the medial malleolus. No bony destructive lesion is seen. There is a small enthesophyte at the posterior calcaneus. JOINTS: The ankle mortise is normally aligned. SOFT TISSUE: Normal. IMPRESSION: Stable alignment of the distal fibular fracture. DATA REPOSITORY: RADIATION DOSE DELIVERED:
== END 2024-05-27 15:26 | disposition home or self-care (01) ==
LOC: DIORS 15:25
PROVIDERS: PCP Nurse Practitioner Family; Referring Provider Nurse Practitioner Family; Visit Provider Student in an Organized Health Care Education/Training Program
DX: S82.831D Other fracture of upper and lower end of right fibula, subsequent encounter for closed fracture with routine healing; X58.XXXD Exposure to other specified factors, subsequent encounter
CPT/HCPCS: 99213; 73610

== ENCOUNTER 2024-08-12 02:58 | Outpatient (CLI) | payer MEDICARE, BC, SELFPAY ==
[2024-08-12 12:57] LABS: Anion Gap 8.8 mmol/L (3-11); BUN 36 mg/dL (7-18); CO2 28.2 mmol/L (21.0-32.0); CREATININE 2.4 mg/dL (0.70-1.30); Calcium 8.7 mg/dL (8.5-10.1); Calculated LDL 63 mg/dL (<100); Chloride 106 mmol/L (98-107); Cholesterol 127 mg/dL (<200); Estimated GFR 27.79 (mL/min/1.73m2); Glucose 144 mg/dL (74-106); HDL Cholesterol 40 mg/dL (>or=40); Potassium 4.6 mmol/L (3.5-5.1); Sodium 143 mmol/L (136-145); Triglyceride 121 mg/dL (<150)
[2024-08-12 18:32] LABS: PSA, Screening 0.5 ng/mL (<=6.5)
== END 2024-08-12 02:59 | disposition home or self-care (01) ==
PROVIDERS: PCP Nurse Practitioner Family; Visit Provider Nurse Practitioner Family
DX: Z13.1 Encounter for screening for diabetes mellitus (principal); Z13.6 Encounter for screening for cardiovascular disorders; Z12.5 Encounter for screening for malignant neoplasm of prostate
CPT/HCPCS: 36415; 80048; 80061; 84153